=== PATIENT | female | born 1985 | race Caucasian/White ===

== ENCOUNTER 2023-12-24 16:48 | Emergency (ER) | payer MEDICAID ==
[~2023-12-24] VITALS: Ht 157.5 cm; Wt 68.0 kg
[2023-12-24 16:57] VITALS: O2SAT 100
[2023-12-24] MEDS: LEVETIRACETAM 1000MG PREMIX 100 ML IV ONE (17:21)
[2023-12-24] MEDS: MORPHINE SULFATE 4 MG/ML INJ (FOR IV/IM USE) IV ONE ×2 (17:22→19:29)
[2023-12-24 17:47] LABS: BASOPHILS % 0.5 % (0.0-2.0); EOSINOPHILS % 2.1 % (0.0-5.0); HEMATOCRIT. 34.1 % (36.0-48.0); HEMOGLOBIN. 11.4 g/dL (12.0-16.0); LYMPHOCYTES % 19.7 % (20.0-50.0); MEAN CORPUSCULAR HEMOGLOBIN 28.5 pg (28.0-32.0); MEAN CORPUSCULAR HGB CONC 33.4 g/dL (31.0-37.0); MEAN CORPUSCULAR VOLUME 85.6 fL (81.0-99.0); MEAN PLATELET VOLUME 8.7 fl (7.4-10.4); MONOCYTES % 4.5 % (2.0-8.0); NEUTROPHILS % 73.2 % (40.0-76.0); PLATELET 318 x1000/uL (130-400); RED BLOOD CELL COUNT 3.98 mill/uL (4.2-5.4); RED CELL DISTRIBUTION WIDTH 14.4 % (11.6-14.6); WHITE BLOOD COUNT 5.4 x1000/uL (4.5-11.0)
[2023-12-24] MEDS: DIPHENHYDRAMINE 50MG/ML VIAL IV ONE ×2 (17:48→20:50)
[2023-12-24 17:51] LABS: CHLORIDE 107 mEq/L (98-107); POTASSIUM 4.7 mEq/L (3.5-5.1); SODIUM 138 mEq/L (136-145)
[2023-12-24 17:52] LABS: CALCIUM 9.7 mg/dL (8.7-10.4); CARBON DIOXIDE 25 mEq/L (21-32)
[2023-12-24 17:57] LABS: CREATININE 0.7 mg/dL (0.6-1.0); GLUCOSE 75 mg/dL (70-105); UREA NITROGEN BLOOD 20 mg/dL (9-23)
[2023-12-24] MEDS: SODIUM CHLORIDE 0.9% 1,000 ML IV ONE (19:30)
[2023-12-24 19:52] VITALS: TEMP 98.1
[2023-12-24] MEDS ORDERED: HYDROMORPHONE HCL/PF 2MG/ML CPJ IV ONE (21:15)
[2023-12-24] MEDS ORDERED: LORAZEPAM 2MG/ML INJ ONE (21:18)
[2023-12-24] MEDS ORDERED: LORAZEPAM 2MG/ML INJ IV ONE (21:30)
[2023-12-24] MEDS: LORAZEPAM 2MG/ML INJ IV ONE (21:31)
[2023-12-24 21:40] VITALS: BP 126/86; PULSE 99; RESP 16
[2023-12-24] MEDS ORDERED: IOHEXOL-350 100 ML BOTTLE ONE (23:33)
== END 2023-12-24 22:34 | disposition left against medical advice (07) ==
LOC: ER 16:48 → EDBEDREQSVC 20:23 → EDBEDREQ 20:23 → EDBEDREQSVC 21:21 → EDBEDREQTM 21:21 → ER 22:34 → CANBEDREQ 23:01
DX: R51.9 Headache, unspecified (principal); R56.9 Unspecified convulsions; I10 Essential (primary) hypertension; Z88.5 Allergy status to narcotic agent; Z88.6 Allergy status to analgesic agent; Z98.890 Other specified postprocedural states
CPT/HCPCS: 80048; 85025; 36415; 70496; 70450; 93005; 96365; 96366; 96375; 96376; 99291; Q9967; J1953; J1200; J2060; J2270; J7030; Z7610 ×2; C1893; 99285; J1170